=== PATIENT | female | born 1990 | race Caucasian/White ===

== ENCOUNTER 2018-06-16 16:49 | Emergency (ER) | payer BC ==
[2018-06-16 17:13] VITALS: TEMP 98.8; BMI 34.8
--- NOTE | 2018-06-16 17:16 | PDOC ---
Rapid Medical Evaluation Chief Complaint: Respiratory Time Seen by Provider: 06/16/18 17:10 Medical Evaluation: 06/16/18 17:10 27 year old 6 month female send by urgent care for evaluation. reports cough, nasal congestion x 6 days today with cough and increased shortness of breath. denies vaginal bleeding, abdominal //pelvic pain. PE; patient alert ox3 cleaR A: pleuritic chest pain P; influenza PATIENT TO THE ER FOR FURTHER MANAGEMENT . Discharge Disposition - Diagnosis Flu-like symptoms - Referrals - Patient Instructions - Post Discharge Activity
--- NOTE | 2018-06-16 19:14 | PDOC ---
Attending Attestation - Resident Resident Name: Monique Carroll - ED Attending Attestation I have performed the following: I have examined & evaluated the patient, The case was reviewed & discussed with the resident, I agree w/resident's findings & plan, Exceptions are as noted - Physicial Exam PE: 06/16/18 19:14 pt is awake, alert, well nourished, nad nc, atr perrla, eomi cta + coryza + gravid uterus no petechiae - Medical Decision Making 06/16/18 19:16 27 y/o female, , at 23 weeks by lmp presents wth uri-type sxs. pt is influenza negative. will dispo to L&D of monitoring. will prescribe z- pack. <Ramon Palomino - Last Filed: 06/16/18 19:14> - HPI HPI: 06/16/18 20:26 The patient is a 27 year old female , (23 weeks ) with no significant past medical history who presents to the emergency department with some increased shortness of breath and congestion for 1 day. The patient denies any other symptoms or complaints. She denies any recent travel or sick contact. She denies any vaginal discharges or complaints. The patient denies any other complaints. <Sonali Tena - Last Filed: 06/16/18 20:26> Attestations - Attestations 06/16/18 20:26 Documentation prepared by Sonali Tena, acting as medical billing associate for Ramon Palomino MD. <Sonali Tena - Last Filed: 06/16/18 20:26>
--- NOTE | 2018-06-16 19:16 | PDOC ---
History of Present Illness - General Chief Complaint: Respiratory Stated Complaint: SHORTNESS OF BREATH Time Seen by Provider: 06/16/18 17:10 History Source: Patient Exam Limitations: No Limitations - History of Present Illness Initial Comments: 06/16/18 21:45 Pt is a 27yo F at 23 weeks gestation without significant PMH presenting to ED with complaints of congestion, SOB, chest pain. Pt states that she has been having these symptoms for the past 5 days. She endorses fever at home today reaching 101. Pain is in the middle of the chest, feels like a tightening and has SOB when walking. She denies pain with inspiration, recent travel, palpitations, swelling in the legs, productive cough, myalgia, arthralgia, neck stiffness, sick contacts, vaginal bleeding, vaginal discharge, urinary symptoms. She did not get the flu shot this year. Has OB follow up elsewhere. Does not take any medications. Past History - Past Medical History Allergies/Adverse Reactions: Allergies Allergy/AdvReac Type Severity Reaction Status Date / Time No Known Allergies Allergy Verified 06/16/18 17:13 Home Medications: Ambulatory Orders Acetaminophen [Tylenol] 650 mg PO QID PRN 06/16/18 Azithromycin [Zithromax 250mg Tablets -] 250 mg PO UTDICT #6 tab 06/16/18 Guaifenesin [Mucinex] 600 mg PO ASDIR 06/16/18 COPD: No - Suicide/Smoking/Psychosocial Hx Smoking History: Never smoked Review of Systems - Review of Systems Constitutional: Yes: Fever. No: Malaise, Night Sweats HEENTM: Yes: Nose Congestion. No: Throat Pain Respiratory: Yes: See HPI, Cough, Shortness of Breath. No: Wheezing, Productive cough, Hemoptysis Cardiac (ROS): Yes: See HPI, Chest Tightness. No: Edema, Lightheadedness, Palpitations, Syncope ABD/GI: No: Constipated, Diarrhea, Nausea, Rectal Bleeding, Vomiting, Tarry Stools : No: Burning, Dysuria Musculoskeletal: No: Back Pain, Joint Pain, Muscle Pain, Neck Pain Integumentary: No: Symptoms Reported Neurological: No: Headache, Numbness, Tingling, Weakness, Dizziness *Physical Exam - Vital Signs Last Vital Signs Temp Pulse Resp BP Pulse Ox 98.8 F 100 H 22 H 141/68 97 06/16/18 17:11 03/06/19 17:11 06/16/18 17:11 06/16/18 17:11 06/16/18 17:11 - Physical Exam General Appearance: Yes: Nourished, Appropriately Dressed. No: Apparent Distress HEENT: positive: EOMI, BRAD, Pharynx Normal. negative: Scleral Icterus (R), Scleral Icterus (L), Pharyngeal Erythema, Tonsillar Exudate Neck: positive: Trachea midline, Supple. negative: Lymphadenopathy (R), Lymphadenopathy (L) Respiratory/Chest: positive: Lungs Clear, Normal Breath Sounds. negative: Crackles, Rales, Rhonchi, Stridor Cardiovascular: positive: Regular Rhythm, Regular Rate, S1, S2. negative: Edema , JVD, Murmur Vascular Pulses: Carotid (R): 2+, Carotid (L): 2+, Dorsalis-Pedis (R): 2+, Doralis-Pedis (L): 2+ Gastrointestinal/Abdominal: positive: Normal Bowel Sounds, Soft, Other (gravid) . negative: Rebound, Tenderness, Hernia, Mass Musculoskeletal: negative: CVA Tenderness Extremity: positive: Normal Capillary Refill Integumentary: positive: Normal Color, Dry, Warm Neurologic: positive: music sound light technician II-XII NML intact, Fully Oriented, Alert, Normal Mood/ Affect, Normal Response, Motor Strength 5/5 Moderate Sedation - Procedure Monitoring Vital Signs: Procedure Monitoring Vital Signs Temperature 98.8 F 06/16/18 17:11 Pulse Rate 100 H 06/16/18 17:11 Respiratory Rate 22 H 06/16/18 17:11 Blood Pressure 141/68 06/16/18 17:11 O2 Sat by Pulse Oximetry (%) 97 06/16/18 17:11 Medical Decision Making - Medical Decision Making 06/16/18 21:50 Pt is a 27yo F at 23 weeks gestation without significant PMH presenting to ED with complaints of congestion, SOB, chest pain. Pt states that she has been having these symptoms for the past 5 days. She endorses fever at home today reaching 101. Pain is in the middle of the chest, feels like a tightening and has SOB when walking. She denies pain with inspiration, recent travel, palpitations, swelling in the legs, productive cough, myalgia, arthralgia, neck stiffness, sick contacts, vaginal bleeding, vaginal discharge, urinary symptoms. She did not get the flu shot this year. Has OB follow up elsewhere. Does not take any medications. Vitals: HR 100, RR 22, saturating well on RA PE: nasal congestion. Otherwise benign Ddx includes but not limited to PNA, bronchitis, ACS, pericarditis, endocarditis , pneumonitis, PE -higher suspicion for infectious process causing symptoms. -flu sent by rme flu negative. Most likely bronchitis. Will dc and pt can go to L&D. Rx for Zpack sent (safe during ) Given return precautions. 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 Please go straight to the labor and deliver floor. A prescription was sent to your pharmacy for an antibiotic. Please take as directed. Come back to the emergency room if you develop fever, have joint and body aches , have neck stiffness, develop a rash, have vaginal bleeding or if any new concerning symptom develops. Thank you - Post Discharge Activity
[2018-06-16 20:55] VITALS: BP 117/73; PULSE 71
== END 2018-06-16 20:35 | disposition home or self-care (01) ==
LOC: JER 16:49
DX: J06.9 Acute upper respiratory infection, unspecified (principal); J11.1 Influenza due to unidentified influenza virus with other respiratory manifestations; O26.892 Other specified pregnancy related conditions, second trimester; Z3A.23 23 weeks gestation of pregnancy
CPT/HCPCS: 87804; 99281-25; 99283-25